=== PATIENT | male | born 1965 | race African-American/Black ===

== ENCOUNTER 2019-08-21 03:16 | Inpatient (IN) | payer MEDICAID, OTHER ==
[~2019-08-21] VITALS: Ht 177.8 cm; Wt 97.1 kg
[2019-08-21] MEDS ORDERED: ONDANSETRON HCL 4MG/2ML INJ IV STA (03:44)
[2019-08-21] MEDS ORDERED: MORPHINE SULFATE 4 MG/ML CPJ (NOT FOR IM USE) IV STA (03:44)
[2019-08-21] MEDS ORDERED: NITROGLYCERIN OINT 1GM/INCH UDPKT TD ONE (03:45)
[2019-08-21 04:34] LABS: BASOPHILS % 0.7 % (0.0-2.0); EOSINOPHILS % 0.1 % (0.0-5.0); HEMOGLOBIN. 14.5 g/dL (14.0-18.0); LYMPHOCYTES % 12.9 % (20.0-50.0); MEAN CORPUSCULAR HEMOGLOBIN 26.8 pg (28.0-32.0); MEAN CORPUSCULAR VOLUME 83.3 fL (80.0-94.0); MEAN PLATELET VOLUME 8.5 fl (7.4-10.4); MONOCYTES % 5.7 % (2.0-8.0); NEUTROPHILS % 80.6 % (40.0-76.0); PLATELET 328 x1000/uL (130-400); RED CELL DISTRIBUTION WIDTH 14.1 % (11.6-14.6)
[2019-08-21 04:42] LABS: CHLORIDE 111 mEq/L (98-107)
[2019-08-21 04:46] LABS: ETHANOL BLOOD < 10 mg/dL
[2019-08-21 05:06] LABS: *AMPHETAMINES SCREEN URINE NEGATIVE (NEGATIVE); *BARBITURATES SCREEN URINE NEGATIVE (NEGATIVE); *BENZODIAZEPINES SCREEN URINE PRESUMTIVE POSITIVE (NEGATIVE); *COCAINE SCREEN URINE PRESUMTIVE POSITIVE (NEGATIVE); METHADONE URINE SCREEN NEGATIVE (NEGATIVE); OPIATES URINE SCREEN NEGATIVE (NEGATIVE); PHENCYCLIDINE URINE SCREEN NEGATIVE (NEGATIVE)
[2019-08-21 05:07] LABS: CANNABINOID URINE SCREEN NEGATIVE (NEGATIVE)
[2019-08-21] MEDS ORDERED: IOHEXOL-350 100 ML BOTTLE ONE (05:41)
[2019-08-21] MEDS ORDERED: ONDANSETRON HCL 4MG/2ML INJ IV PRN (07:30)
[2019-08-21] MEDS ORDERED: ACETAMINOPHEN 325MG TABLET PO PRN (07:30)
[2019-08-21] MEDS ORDERED: GUAIFENESIN 200MG/10ML SUGAR FREE UDC PO PRN (07:30)
[2019-08-21] MEDS ORDERED: IPRATROPIUM/ALBUTEROL 0.5-3(2.5)MG/3ML NEB NEB PRN (07:30)
[2019-08-21] MEDS ORDERED: MAGNESIUM/ALUMINUM HYDROXIDE/SIMETHICONE 30ML UDC PO PRN (07:30)
[2019-08-21] MEDS ORDERED: NITROGLYCERIN 0.4MG TABLET SL SL PRN (07:30)
[2019-08-21] MEDS ORDERED: DOCUSATE SODIUM 100MG CAPSULE PO PRN (07:30)
[2019-08-21] MEDS ORDERED: ENOXAPARIN 40MG/0.4ML SYR SUBCUT SCH (07:30)
[2019-08-21] MEDS: ASPIRIN 325MG EC TABLET PO SCH (09:34)
[2019-08-21] MEDS: FAMOTIDINE 20MG TABLET PO SCH ×2 (09:34→20:37)
[2019-08-21] MEDS: CLONIDINE 0.1MG TABLET PO PRN ×2 (09:35→20:50)
[2019-08-21] MEDS: KETOROLAC 15MG/ML VIAL IV PRN ×2 (09:39→20:50)
[2019-08-21 10:08] VITALS: BP 177/129
[2019-08-21] MEDS ORDERED: ARIP2TAB3 MT (10:22)
[2019-08-21] MEDS ORDERED: TRAZ-213 PO (10:22)
[2019-08-21] MEDS ORDERED: LORA-249 MT (10:22)
[2019-08-21] MEDS ORDERED: BUPR300T52 MT (10:22)
[2019-08-21 12:00] VITALS: BP 148/87
[2019-08-21] MEDS: LORAZEPAM 0.5MG TABLET PO PRN (14:57)
[2019-08-21] MEDS: ENOXAPARIN 30MG/0.3ML SYR SUBCUT SCH ×2 (14:57→20:44)
[2019-08-21] MEDS: DILTIAZEM HCL 60MG TABLET PO SCH ×2 (14:59→18:28)
[2019-08-21] MEDS ORDERED: CLON1TAB MT (15:27)
[2019-08-21 16:19] VITALS: BP 126/74
[2019-08-21 16:36] LABS: CREATINE KINASE 418 IU/L (39-308)
[2019-08-21 16:37] LABS: CREATINE KINASE MB FRACTION 5.5 ng/mL (0.5-3.6)
[2019-08-21 20:00] VITALS: BP 148/102
[2019-08-21] MEDS: OLANZAPINE 10MG TABLET PO SCH (20:37)
[2019-08-21] MEDS: TRAZODONE HCL 50MG TABLET PO SCH (20:38)
[2019-08-22 00:11] LABS: CREATINE KINASE 423 IU/L (39-308)
[2019-08-22 00:12] LABS: CREATINE KINASE MB FRACTION 5.7 ng/mL (0.5-3.6)
[2019-08-22] MEDS: DILTIAZEM HCL 60MG TABLET PO SCH ×4 (00:22→18:10)
[2019-08-22 00:26] VITALS: BP 130/81
[2019-08-22 04:00] VITALS: BP 116/79
[2019-08-22] MEDS: LORAZEPAM 0.5MG TABLET PO PRN ×3 (08:46→18:10)
[2019-08-22] MEDS: OLANZAPINE 10MG TABLET PO SCH (08:46)
[2019-08-22] MEDS: ASPIRIN 325MG EC TABLET PO SCH (08:46)
[2019-08-22] MEDS: ENOXAPARIN 30MG/0.3ML SYR SUBCUT SCH ×2 (08:46→20:42)
[2019-08-22] MEDS: FAMOTIDINE 20MG TABLET PO SCH ×2 (08:46→20:43)
[2019-08-22 08:52] VITALS: BP 121/86
[2019-08-22 12:30] VITALS: BP 113/71
[2019-08-22] MEDS: KETOROLAC 15MG/ML VIAL IV PRN (12:54)
[2019-08-22 16:17] VITALS: BP 116/70
[2019-08-22 20:00] VITALS: BP 195/78
[2019-08-22] MEDS: TRAZODONE HCL 50MG TABLET PO SCH (20:43)
[2019-08-23] VITALS: BP 102/61
[2019-08-23 04:00] VITALS: BP 120/83
[2019-08-23] MEDS: DILTIAZEM HCL 60MG TABLET PO SCH ×4 (05:33→17:02)
[2019-08-23 08:00] VITALS: BP 124/68
[2019-08-23] MEDS: ASPIRIN 325MG EC TABLET PO SCH (08:51)
[2019-08-23] MEDS: OLANZAPINE 10MG TABLET PO SCH (08:51)
[2019-08-23] MEDS: FAMOTIDINE 20MG TABLET PO SCH ×2 (08:51→20:17)
[2019-08-23] MEDS: ENOXAPARIN 30MG/0.3ML SYR SUBCUT SCH ×2 (08:52→20:17)
[2019-08-23] MEDS: KETOROLAC 15MG/ML VIAL IV PRN ×2 (09:18→16:59)
[2019-08-23 12:00] VITALS: BP 126/79
[2019-08-23 16:00] VITALS: BP 126/74
[2019-08-23 20:00] VITALS: BP 169/93
[2019-08-23] MEDS: ZOLPIDEM TARTRATE 5MG TABLET PO PRN (20:17)
[2019-08-23] MEDS: TRAZODONE HCL 50MG TABLET PO SCH (20:17)
[2019-08-24 00:05] VITALS: BP 136/99
[2019-08-24] MEDS: DILTIAZEM HCL 60MG TABLET PO SCH ×4 (00:13→17:00)
[2019-08-24 04:00] VITALS: BP 159/98
[2019-08-24] MEDS: KETOROLAC 15MG/ML VIAL IV PRN ×3 (06:11→20:52)
[2019-08-24 08:30] VITALS: BP 157/109
[2019-08-24] MEDS: ENOXAPARIN 30MG/0.3ML SYR SUBCUT SCH ×2 (08:36→20:41)
[2019-08-24] MEDS: ASPIRIN 325MG EC TABLET PO SCH (08:36)
[2019-08-24] MEDS: FAMOTIDINE 20MG TABLET PO SCH ×2 (08:37→20:40)
[2019-08-24] MEDS: OLANZAPINE 10MG TABLET PO SCH (08:37)
[2019-08-24] MEDS: LORAZEPAM 0.5MG TABLET PO PRN ×2 (09:02→17:06)
[2019-08-24 12:27] VITALS: BP 143/92
[2019-08-24 16:00] VITALS: BP 157/98
[2019-08-24 20:00] VITALS: BP 194/106
[2019-08-24] MEDS: TRAZODONE HCL 50MG TABLET PO SCH (20:40)
[2019-08-24] MEDS: CLONIDINE 0.1MG TABLET PO PRN (20:41)
[2019-08-24] MEDS: ZOLPIDEM TARTRATE 5MG TABLET PO PRN (20:41)
[2019-08-25] VITALS: BP 139/81
[2019-08-25] MEDS: DILTIAZEM HCL 60MG TABLET PO SCH ×4 (00:35→17:47)
[2019-08-25 04:00] VITALS: BP 136/85
[2019-08-25] MEDS: KETOROLAC 15MG/ML VIAL IV PRN ×3 (05:32→19:49)
[2019-08-25 08:00] VITALS: BP 180/96
[2019-08-25] MEDS: OLANZAPINE 10MG TABLET PO SCH (08:15)
[2019-08-25] MEDS: LORAZEPAM 0.5MG TABLET PO PRN (08:15)
[2019-08-25] MEDS: ENOXAPARIN 30MG/0.3ML SYR SUBCUT SCH ×2 (08:15→19:50)
[2019-08-25] MEDS: ASPIRIN 325MG EC TABLET PO SCH (08:15)
[2019-08-25] MEDS: FAMOTIDINE 20MG TABLET PO SCH ×2 (08:15→19:50)
[2019-08-25] MEDS: CLONIDINE 0.1MG TABLET PO PRN ×2 (09:16→19:50)
[2019-08-25 12:30] VITALS: BP 143/94
[2019-08-25 16:30] VITALS: BP 132/84
[2019-08-25 19:44] VITALS: BP 163/101
[2019-08-25] MEDS: TRAZODONE HCL 50MG TABLET PO SCH (19:49)
[2019-08-25] MEDS: ZOLPIDEM TARTRATE 5MG TABLET PO PRN (19:50)
[2019-08-26 00:05] VITALS: BP 142/94
[2019-08-26] MEDS: DILTIAZEM HCL 60MG TABLET PO SCH ×4 (00:48→18:27)
[2019-08-26 04:00] VITALS: BP 145/97
[2019-08-26] MEDS: KETOROLAC 15MG/ML VIAL IV PRN ×3 (05:32→18:27)
[2019-08-26] MEDS: LORAZEPAM 0.5MG TABLET PO PRN ×2 (05:32→20:45)
[2019-08-26 08:00] VITALS: BP 142/90
[2019-08-26] MEDS: ENOXAPARIN 30MG/0.3ML SYR SUBCUT SCH ×2 (09:30→20:44)
[2019-08-26] MEDS: FAMOTIDINE 20MG TABLET PO SCH ×2 (09:30→20:45)
[2019-08-26] MEDS: OLANZAPINE 10MG TABLET PO SCH (09:30)
[2019-08-26] MEDS: ASPIRIN 325MG EC TABLET PO SCH (09:30)
[2019-08-26 12:00] VITALS: BP 157/95
[2019-08-26 16:00] VITALS: BP 141/99
[2019-08-26 20:00] VITALS: BP 148/97
[2019-08-26] MEDS: TRAZODONE HCL 50MG TABLET PO SCH (20:45)
[2019-08-26] MEDS: ZOLPIDEM TARTRATE 5MG TABLET PO PRN (20:51)
[2019-08-26] MEDS: CLONIDINE 0.1MG TABLET PO PRN (21:27)
[2019-08-27] VITALS: BP 134/83
[2019-08-27] MEDS: KETOROLAC 15MG/ML VIAL IV PRN ×4 (00:41→18:59)
[2019-08-27] MEDS: DILTIAZEM HCL 60MG TABLET PO SCH ×4 (00:41→18:46)
[2019-08-27 04:00] VITALS: BP 151/104
[2019-08-27 08:00] VITALS: BP 148/98
[2019-08-27] MEDS: ASPIRIN 325MG EC TABLET PO SCH (09:47)
[2019-08-27] MEDS: OLANZAPINE 10MG TABLET PO SCH (09:47)
[2019-08-27] MEDS: FAMOTIDINE 20MG TABLET PO SCH ×2 (09:47→20:39)
[2019-08-27] MEDS: ENOXAPARIN 30MG/0.3ML SYR SUBCUT SCH ×2 (10:18→20:36)
[2019-08-27] MEDS: LORAZEPAM 0.5MG TABLET PO PRN ×3 (10:18→20:21)
[2019-08-27 16:00] VITALS: BP 136/90
[2019-08-27 20:00] VITALS: BP 151/96
[2019-08-27] MEDS: TRAZODONE HCL 50MG TABLET PO SCH (20:17)
[2019-08-27] MEDS ORDERED: ZOLPIDEM TARTRATE 5MG TABLET PO PRN (21:00)
[2019-08-28] VITALS: BP 138/86
[2019-08-28] MEDS: DILTIAZEM HCL 60MG TABLET PO SCH ×2 (01:29→05:04)
[2019-08-28 04:00] VITALS: BP 165/92
[2019-08-28 06:10] LABS: BASOPHILS % 0.9 % (0.0-2.0); EOSINOPHILS % 1.8 % (0.0-5.0); HEMATOCRIT. 39.2 % (42.0-52.0); HEMOGLOBIN. 12.8 g/dL (14.0-18.0); LYMPHOCYTES % 30.2 % (20.0-50.0); MEAN CORPUSCULAR HEMOGLOBIN 27.1 pg (28.0-32.0); MEAN CORPUSCULAR VOLUME 82.9 fL (80.0-94.0); MEAN PLATELET VOLUME 7.8 fl (7.4-10.4); MONOCYTES % 12.2 % (2.0-8.0); NEUTROPHILS % 54.9 % (40.0-76.0); PLATELET 365 x1000/uL (130-400); RED BLOOD CELL COUNT 4.73 mill/uL (4.7-6.1); RED CELL DISTRIBUTION WIDTH 14.6 % (11.6-14.6)
[2019-08-28 06:35] VITALS: BP 165/92
[2019-08-28] MEDS: LORAZEPAM 0.5MG TABLET PO PRN (06:35)
[2019-08-28] MEDS: KETOROLAC 15MG/ML VIAL IV PRN (06:35)
== END 2019-08-28 07:39 | disposition left against medical advice (07) | DRG 816 ==
LOC: ER 03:16 → 7WST 05:35 → EDBEDREQ 05:37 → EDBEDREQTM 05:37 → ENRESERV 08:17
PROVIDERS: ADMIT Internal Medicine; ATTEND Internal Medicine
DX: T40.5X1A Poisoning by cocaine, accidental (unintentional), initial encounter (principal); F20.9 Schizophrenia, unspecified; I10 Essential (primary) hypertension; I25.2 Old myocardial infarction; F14.10 Cocaine abuse, uncomplicated; R07.9 Chest pain, unspecified; R74.0 Nonspecific elevation of levels of transaminase and lactic acid dehydrogenase [LDH]; Y92.89 Other specified places as the place of occurrence of the external cause
CPT/HCPCS: 36415; 71045; 71275; 80061; 80305; 80320; 82550; 82553; 83036; 83880; 84484; 93005; 96374; 96375; 99285; J1650; J1885; J2270; J2405; J7040; Q9967; G0480